=== PATIENT | male | born 1995 | race African-American/Black ===

== ENCOUNTER 2018-05-13 06:52 | Emergency (ER) | payer OTHER ==
[~2018-05-13] VITALS: Ht 193 cm; Wt 113.4 kg
== END 2018-05-13 09:18 | disposition home or self-care (01) ==
LOC: ER 06:52
DX: F32.9 Major depressive disorder, single episode, unspecified (principal)
CPT/HCPCS: 99284; Q3014

== ENCOUNTER 2018-06-17 01:59 | Emergency (ER) | payer OTHER ==
[~2018-06-17] VITALS: Ht 193 cm; Wt 113.4 kg
== END 2018-06-17 03:10 | disposition home or self-care (01) ==
LOC: ER 01:59
DX: S62.334A Displaced fracture of neck of fourth metacarpal bone, right hand, initial encounter for closed fracture (principal); S62.324A Displaced fracture of shaft of fourth metacarpal bone, right hand, initial encounter for closed fracture; F32.9 Major depressive disorder, single episode, unspecified; X58.XXXA Exposure to other specified factors, initial encounter
CPT/HCPCS: 29125; 73130; 99284-25